=== PATIENT | male | born 1990 | race Caucasian/White ===

== ENCOUNTER 2017-10-01 19:08 | Emergency (ER) | payer OTHER ==
[~2017-10-01] VITALS: Ht 167.6 cm; Wt 61.2 kg
[~2017-10-01 19:08] MED LIST: CEPH500 PO; CLIN300 PO; CLOT1TC TOP; Cubicin500 MG/VIA IV; DOXY100 PO; HYDR1TAB94 PO; IBUP800 PO; KETO10 PO; Motrin600 MG PO; Norco 5-325 Ta1 EACH PO; Rocephin 1g1 G/50 ML IV; UNKNOWN MEDS; Vibramycin100 MG PO
[2017-10-01] MEDS ORDERED: ERYT1OIN LEFTEYE (19:38)
[2017-10-01] MEDS ORDERED: Percocet 5-3251 EACH PO (19:38)
== END 2017-10-01 19:49 | disposition home or self-care (01) ==
LOC: ER 19:08
DX: S05.02XA Injury of conjunctiva and corneal abrasion without foreign body, left eye, initial encounter (principal); W45.8XXA Other foreign body or object entering through skin, initial encounter
CPT/HCPCS: 99283

== ENCOUNTER 2017-10-03 13:24 | Emergency (ER) | payer OTHER ==
[~2017-10-03] VITALS: Ht 167.6 cm; Wt 56.7 kg
[~2017-10-03 13:24] MED LIST changes: +ERYT1OIN LEFTEYE; +Percocet 5-3251 EACH PO
== END 2017-10-03 14:50 | disposition home or self-care (01) ==
LOC: ER 13:24
DX: S05.02XA Injury of conjunctiva and corneal abrasion without foreign body, left eye, initial encounter (principal); F17.210 Nicotine dependence, cigarettes, uncomplicated; Z88.0 Allergy status to penicillin; Z88.2 Allergy status to sulfonamides; X58.XXXA Exposure to other specified factors, initial encounter
CPT/HCPCS: 99283

== ENCOUNTER 2017-10-27 20:00 | Emergency (ER) | payer OTHER ==
[~2017-10-27] VITALS: Ht 167.6 cm; Wt 59.0 kg
[2017-10-27] MEDS ORDERED: Monodox100 MG PO (20:39)
== END 2017-10-27 20:46 | disposition home or self-care (01) ==
LOC: ER 20:00
DX: L03.114 Cellulitis of left upper limb (principal); Z88.0 Allergy status to penicillin; Z88.2 Allergy status to sulfonamides; F17.210 Nicotine dependence, cigarettes, uncomplicated
CPT/HCPCS: 99282

== ENCOUNTER → 2018-03-10 | Outpatient (CLI) | payer OTHER ==
[~2018-03-10] MED LIST changes: +Monodox100 MG PO
== END | disposition home or self-care (01) ==
LOC: EDSTATUS 08:58 → LAB SHORT 15:30 → LAB 15:30
DX: R31.9 Hematuria, unspecified (principal)
CPT/HCPCS: 87086

== ENCOUNTER 2021-02-25 15:34 | Emergency (ER) | payer OTHER | END 2021-02-25 16:56 | disposition left against medical advice (07) | LOC: ER 15:34 | DX: Z53.21 Procedure and treatment not carried out due to patient leaving prior to being seen by health care provider (principal) ==

== ENCOUNTER 2024-01-17 17:17 | Emergency (ER) | payer OTHER ==
[~2024-01-17] VITALS: Ht 167.6 cm; Wt 59.0 kg
[2024-01-17 18:23] LABS: BASOPHILS ABSOLUTE AUTO 0.03 K/mm3 (0.00-0.23); BASOPHILS PERCENT AUTO 0 % (0-2); EOSINOPHILS ABSOLUTE AUTO 0.14 K/mm3 (0.00-0.68); EOSINOPHILS PERCENT AUTO 2 % (0-6); Hematocrit 40.4 % (37.0-53.0); Hemoglobin 13.6 g/dL (13.5-17.5); IMMATURE GRAN ABSOLUTE AUTO 0.01 K/mm3 (0.00-0.10); IMMATURE GRAN PERCENT AUTO 0 % (0-1); LYMPHOCYTES ABSOLUTE AUTO 1.67 K/mm3 (0.84-5.20); LYMPHOCYTES PERCENT AUTO 23 % (21-46); MONOCYTES ABSOLUTE AUTO 0.62 K/mm3 (0.16-1.47); MONOCYTES PERCENT AUTO 9 % (4-13); Mean Corpuscular HGB 31.3 pg (26.0-34.0); Mean Corpuscular HGB Conc 33.7 g/dL (31.5-36.5); Mean Corpuscular Volume 93 fL (80-100); Mean Platelet Volume 8.4 fL (9.1-12.4); NEUTROPHILS ABSOLUTE AUTO 4.85 K/mm3 (1.96-9.15); NEUTROPHILS PERCENT AUTO 66 % (41-73); Platelet Count 372 K/mm3 (150-400); RDW Coefficient Variation 12.1 % (11.7-14.2); RDW Standard Deviation 42.2 fL (35.1-46.3); Red Blood Cell Count 4.35 M/mm3 (4.30-5.90); White Blood Cell Count 7.32 K/mm3 (4.00-11.30)
[2024-01-17 18:46] LABS: Albumin, Blood 3.5 g/dL (3.4-5.0); Albumin/Globulin Ratio 0.9 (0.8-1.8); Bilirubin, Total 0.4 mg/dL (0.1-1.0); Bun/Creatinine Ratio 13.3 (12.0-20.0); Calcium, Blood 8.9 mg/dL (8.5-10.1); Creatinine, Blood 0.68 mg/dL (0.60-1.20); Globulin, Blood 4.1 g/dL (2.2-4.0); Potassium, Blood 3.9 mmol/L (3.5-5.5); Total Protein, Blood 7.6 g/dL (6.4-8.2)
[2024-01-17] MEDS ORDERED: DOXY100 PO (20:23)
[2024-01-17] MEDS ORDERED: Mupirocin22 GM TOP (20:23)
[2024-01-17] MEDS ORDERED: Doxycycline Hyclate 100 MG TAB PO ONE (20:25)
[2024-01-17 20:34] VITALS: BP 121/80
== END 2024-01-17 20:38 | disposition home or self-care (01) ==
LOC: ER 17:17
PROVIDERS: Physician Assistant
DX: L03.116 Cellulitis of left lower limb (principal)
CPT/HCPCS: 80053; 85025; 99283; A9270

== ENCOUNTER 2024-02-12 17:25 | Emergency (ER) | payer OTHER ==
[~2024-02-12] VITALS: Ht 167.6 cm; Wt 62.1 kg
[~2024-02-12 17:25] MED LIST changes: +Mupirocin22 GM TOP
[2024-02-12 18:25] VITALS: BP 107/67
[2024-02-12] MEDS ORDERED: Cephalexin Monohydrate 500 MG Cap PO ONE (22:20)
[2024-02-12] MEDS ORDERED: CEPH500 PO (22:29)
== END 2024-02-12 22:51 | disposition home or self-care (01) ==
LOC: ER 17:25
DX: L03.116 Cellulitis of left lower limb (principal); F17.210 Nicotine dependence, cigarettes, uncomplicated; Z88.0 Allergy status to penicillin; Z88.2 Allergy status to sulfonamides
CPT/HCPCS: 99283; A9270

== ENCOUNTER 2024-02-29 18:50 | Emergency (ER) | payer OTHER ==
[~2024-02-29] VITALS: Ht 167.6 cm; Wt 62.1 kg
[2024-02-29 20:08] VITALS: BP 102/72
[2024-02-29] MEDS ORDERED: Clindamycin HCl 150 MG Cap PO ONE (22:00)
[2024-02-29] MEDS ORDERED: Cephalexin Monohydrate 500 MG Cap PO ONE (22:10)
[2024-02-29] MEDS ORDERED: CEPH500 PO (22:16)
[2024-02-29] MEDS ORDERED: CLIN300 PO (22:16)
== END 2024-02-29 22:27 | disposition home or self-care (01) ==
LOC: ER 18:50
DX: L03.116 Cellulitis of left lower limb (principal); F17.210 Nicotine dependence, cigarettes, uncomplicated; Z88.0 Allergy status to penicillin; Z88.2 Allergy status to sulfonamides; Z79.899 Other long term (current) drug therapy
CPT/HCPCS: 87070; 87075; 87186; 87205; 99283; A9270

== ENCOUNTER 2024-12-07 17:13 | Emergency (ER) | payer OTHER ==
[~2024-12-07] VITALS: Ht 167.6 cm; Wt 59.0 kg
[2024-12-07 18:15] VITALS: BP 106/70
== END 2024-12-07 18:19 | disposition home or self-care (01) ==
LOC: ER 17:13
DX: F11.90 Opioid use, unspecified, uncomplicated (principal); Z76.0 Encounter for issue of repeat prescription; Z88.2 Allergy status to sulfonamides; Z79.2 Long term (current) use of antibiotics; F17.210 Nicotine dependence, cigarettes, uncomplicated
CPT/HCPCS: 99281; A9270

== ENCOUNTER → 2025-01-25 | Emergency (ER) | payer OTHER ==
[~2025-01-25] VITALS: Ht 167.6 cm; Wt 59.0 kg
[2025-01-25 12:45] VITALS: BP 128/84
== END ==
LOC: ER 12:08
DX: F11.90 Opioid use, unspecified, uncomplicated (principal); Z76.0 Encounter for issue of repeat prescription; F17.210 Nicotine dependence, cigarettes, uncomplicated; Z88.0 Allergy status to penicillin; Z88.2 Allergy status to sulfonamides
CPT/HCPCS: 99281; A9270

== ENCOUNTER 2025-02-05 13:05 | Emergency (ER) | payer OTHER ==
[~2025-02-05] VITALS: Ht 167.6 cm; Wt 59.0 kg
[2025-02-05 13:16] VITALS: BP 111/71
== END 2025-02-05 13:34 | disposition home or self-care (01) ==
LOC: ER 13:05
DX: Z76.89 Persons encountering health services in other specified circumstances (principal); F19.90 Other psychoactive substance use, unspecified, uncomplicated; F17.210 Nicotine dependence, cigarettes, uncomplicated; Z88.0 Allergy status to penicillin; Z88.2 Allergy status to sulfonamides; Z79.899 Other long term (current) drug therapy
CPT/HCPCS: 99281; A9270